=== PATIENT | female | born 1990 | race Caucasian/White ===

== ENCOUNTER 2017-04-22 20:39 | Emergency (ER) | payer OTHER ==
[~2017-04-22] VITALS: Ht 170.2 cm; Wt 132.7 kg
[2017-04-22 20:40] VITALS: BP 114/66
[2017-04-22] MEDS ORDERED: ABIL1TAB11 PO (21:11)
[2017-04-22] MEDS ORDERED: ZOLO100T PO (21:11)
== END 2017-04-22 22:59 | disposition left against medical advice (07) ==
LOC: M ED 20:39
DX: R10.9 Unspecified abdominal pain (principal)

== ENCOUNTER 2017-04-23 18:41 | Emergency (ER) | payer OTHER ==
[~2017-04-23] VITALS: Ht 170.2 cm; Wt 132.7 kg
[2017-04-23 18:41] VITALS: BP 127/66
[~2017-04-23 18:41] MED LIST: ABIL1TAB11 PO; ZOLO100T PO
[2017-04-23 20:07] LABS: BASO # 0.1 10^3/uL (0.0-0.2); BASO % 0.6 % (0.0-1.0); CONTROL LINE UCG INT CTR LINE PRESENT; EOS # 0.5 10^3/uL (0.0-0.50); EOS % 4.2 % (0.0-3.0); IMMATURE GRANULOCYTE % 0.5 % (0-0); LYMPH # 2.8 10^3/uL (1.5-6.5); MEAN CORPUSCULAR HEMOGLOBIN 24.4 pg (27.0-33.0); MEAN CORPUSCULAR HGB CONC 30.8 g/dl (32.0-36.5); MEAN CORPUSCULAR VOLUME 79.4 fl (80.0-96.0); MONO # 0.5 10^3/uL (0.0-0.8); NEUTROPHILS % 63.7 % (36.0-66.0); PLATELET COUNT, AUTOMATED 345 10^3/uL (150-450); RED CELL DISTRIBUTION WIDTH 16.1 % (11.5-14.5); WHITE BLOOD COUNT 10.9 10^3/uL (4.0-10.0)
[2017-04-23 20:09] LABS: ADD MORPHOLOGY? NO
[2017-04-23] MEDS ORDERED: MORPHINE 2 MG/ML 1ML SYRINGE IV ONE ×2 (20:15→21:45)
[2017-04-23] MEDS ORDERED: diphenhydrAMINE INJ 50MG/ML VIAL (J1200) IM ONE (21:45)
[2017-04-23] MEDS ORDERED: diphenhydrAMINE INJ 50MG/ML VIAL (J1200) IV STA (21:45)
[2017-04-23] MEDS ORDERED: PHENAZOPYRIDINE 100 MG TAB PO ONE (22:45)
--- NOTE | 2017-04-23 23:30 | REPUSA ---
Clinical history: Pain. Findings: Real-time transabdominal and transvaginal ultrasound images of the pelvis were obtained. Mu ltiple simple cysts are seen within the cervix. A retroflexed uterus is noted, measuring 7.3 x 4.3 x 5.5 cm. The uterus demonstrates normal echotexture and echogenicity. The endometrial stripe measures 10 mm and is within normal limits. The right ovary measures 3.6 x 2.5 x 4.2 cm. The left ovary measur es 3.3 x 2.5 x 1.9 cm. No adnexal masses are seen. Color Doppler flow is seen within both ovaries. Th ere is no evidence of free fluid. Impression: Unremarkable ultrasound examination of the uterus and ovaries. Nabothian cysts.
== END 2017-04-23 23:27 | disposition left against medical advice (07) ==
LOC: M ED 18:41
DX: N93.9 Abnormal uterine and vaginal bleeding, unspecified (principal)
CPT/HCPCS: 76856; 81001; 84703; 85025; 86850; 86900; 86901; 87210; 87491; 87591; 96374; 96375; 96376; 99282; J1200

== ENCOUNTER 2019-09-25 14:28 | Emergency (ER) | payer OTHER, SELFPAY ==
[~2019-09-25] VITALS: Ht 172.7 cm; Wt 145.9 kg
[2019-09-25 14:29] VITALS: BP 122/65
[2019-09-25] MEDS ORDERED: SERT-138 (14:34)
[2019-09-25 16:39] LABS: BASO # 0.1 10^3/uL (0.0-0.2); BASO % 0.4 % (0.0-1.0); EOS # 0.3 10^3/uL (0.0-0.5); EOS % 1.9 % (0.0-3.0); HEMATOCRIT 38.8 % (36.0-47.0); HEMOGLOBIN 12.4 g/dl (12.0-15.5); LYMPH # 2.1 10^3/uL (1.5-5.0); LYMPH % 15.6 % (24.0-44.0); MEAN CORPUSCULAR HEMOGLOBIN 27.5 pg (27.0-33.0); MONO # 0.7 10^3/uL (0.0-0.8); MONO % 5.2 % (0.0-5.0); NEUTROPHILS # 10.2 10^3/uL (1.5-8.5); PLATELET COUNT, AUTOMATED 379 10^3/uL (150-450); RED BLOOD COUNT 4.51 10^6/uL (4.00-5.40); WHITE BLOOD COUNT 13.4 10^3/uL (4.0-10.0)
[2019-09-25 17:05] LABS: ALBUMIN 3.4 GM/DL (3.2-5.2); ALT/SGPT 22 U/L (12-78); BILIRUBIN,DIRECT < 0.1 MG/DL (0.0-0.2); BILIRUBIN,TOTAL 0.2 MG/DL (0.2-1.0); BLOOD UREA NITROGEN 11 MG/DL (7-18); CALCIUM LEVEL 8.6 MG/DL (8.5-10.1); CARBON DIOXIDE LEVEL 26 MEQ/L (21-32); CHLORIDE LEVEL 107 MEQ/L (98-107); CREATININE FOR GFR 0.64 MG/DL (0.55-1.30); GLOMERULAR FILTRATION RATE > 60.0 (>60); GLUCOSE, FASTING 105 MG/DL (70-100); LIPASE 129 U/L (73-393); POTASSIUM SERUM 3.9 MEQ/L (3.5-5.1); SODIUM LEVEL 139 MEQ/L (136-145); TOTAL PROTEIN 7.5 GM/DL (6.4-8.2)
[2019-09-25] MEDS ORDERED: diphenhydrAMINE INJ 50MG/ML VIAL (J1200) IV STA (17:29)
[2019-09-25] MEDS ORDERED: ONDANSETRON 4MG/2ML VIAL (J2405) IV ONE (17:30)
[2019-09-25] MEDS ORDERED: ACETAMINOPHEN 500 MG TAB PO ONE (17:30)
[2019-09-26 10:48] LABS: CHLAMYDIA DNA AMPLIFICATION NEGATIVE (NEGATIVE); GC DNA AMPLIFICATION NEGATIVE (NEGATIVE)
== END 2019-09-25 18:04 | disposition left against medical advice (07) ==
LOC: M ED 14:28
DX: R10.30 Lower abdominal pain, unspecified (principal); R11.10 Vomiting, unspecified; Z79.899 Other long term (current) drug therapy; Z88.0 Allergy status to penicillin; Z88.8 Allergy status to other drugs, medicaments and biological substances; Z91.040 Latex allergy status; Z91.041 Radiographic dye allergy status; Z91.048 Other nonmedicinal substance allergy status

== ENCOUNTER 2019-09-29 12:27 | Emergency (ER) | payer OTHER, SELFPAY ==
[~2019-09-29] VITALS: Ht 172.7 cm; Wt 148.2 kg
[~2019-09-29 12:27] MED LIST changes: +SERT-138
[2019-09-29 13:31] LABS: BASO # 0.1 10^3/uL (0.0-0.2); BASO % 0.6 % (0.0-1.0); EOS # 0.4 10^3/uL (0.0-0.5); EOS % 3.5 % (0.0-3.0); HEMATOCRIT 37.8 % (36.0-47.0); HEMOGLOBIN 11.9 g/dl (12.0-15.5); LYMPH # 1.9 10^3/uL (1.5-5.0); LYMPH % 17.5 % (24.0-44.0); MEAN CORPUSCULAR HGB CONC 31.5 g/dl (32.0-36.5); MEAN CORPUSCULAR VOLUME 85.7 fl (80.0-96.0); MONO # 0.6 10^3/uL (0.0-0.8); MONO % 5.1 % (0.0-5.0); NEUTROPHILS # 7.8 10^3/uL (1.5-8.5); NEUTROPHILS % 71.8 % (36.0-66.0); PLATELET COUNT, AUTOMATED 346 10^3/uL (150-450); RED BLOOD COUNT 4.41 10^6/uL (4.00-5.40); WHITE BLOOD COUNT 10.9 10^3/uL (4.0-10.0)
[2019-09-29 13:51] LABS: BLOOD UREA NITROGEN 6 MG/DL (7-18); CALCIUM LEVEL 7.8 MG/DL (8.5-10.1); CARBON DIOXIDE LEVEL 26 MEQ/L (21-32); CHLORIDE LEVEL 109 MEQ/L (98-107); CREATININE FOR GFR 0.56 MG/DL (0.55-1.30); GLOMERULAR FILTRATION RATE > 60.0 (>60); GLUCOSE, FASTING 79 MG/DL (70-100); HCG, SERUM QUALITATIVE NEGATIVE (NEGATIVE); SODIUM LEVEL 141 MEQ/L (136-145)
[2019-09-29] MEDS: PROMETHAZINE 25 MG TAB PO ONE ×2 (15:36→16:03)
[2019-09-29] MEDS: ACETAMINOPHEN 500 MG TAB PO ONE ×2 (15:36→16:04)
[2019-09-29 15:47] VITALS: BP 122/88
--- NOTE | 2019-09-30 06:40 | REP ---
Pelvic sonography: History: Right lower quadrant pain. History of ovarian cysts. Findings: Transabdominal and transvaginal scanning are performed. Uterine dimensions are normal measured at 7.4 x 4.3 x 5.8 cm . Endometrial echo is 0.7 cm thick. Uterus is somewhat retroverted. No focal uterine mass is seen. Uterine texture is heterogeneous, however, and there is one focal parenchymal calcification. Normal ovaries are seen bilaterally. Right ovary measures 3.5 x 2.1 x 3.1 cm. Left ovary measures 1.8 x 2.0 x 1.3 cm. Visualized bladder urbina are smooth. Impression: Retroverted uterus. Normal ovaries. No significant morphologic abnormality. Electronically Signed by Ruel Villalobos MD 09/30/2019 07:47 A
== END 2019-09-29 15:55 | disposition left against medical advice (07) ==
LOC: M ED 12:27
DX: N93.8 Other specified abnormal uterine and vaginal bleeding (principal); N85.4 Malposition of uterus; Z53.20 Procedure and treatment not carried out because of patient's decision for unspecified reasons; Z87.42 Personal history of other diseases of the female genital tract; F17.210 Nicotine dependence, cigarettes, uncomplicated; Z88.0 Allergy status to penicillin; Z88.1 Allergy status to other antibiotic agents; Z88.8 Allergy status to other drugs, medicaments and biological substances; Z91.040 Latex allergy status; Z91.041 Radiographic dye allergy status

== ENCOUNTER 2019-10-04 00:17 | Emergency (ER) | payer OTHER ==
[~2019-10-04] VITALS: Ht 172.7 cm; Wt 144.7 kg
[2019-10-04] MEDS ORDERED: ACETAMINOPHEN 500 MG TAB PO ONE (03:45)
[2019-10-04 03:55] VITALS: BP 107/49
[2019-10-04 04:30] LABS: AMPHETAMINES LEVEL URINE NEGATIVE (NEGATIVE); BARBITURATES URINE NEGATIVE (NEGATIVE); BENZODIAZEPINES URINE NEGATIVE (NEGATIVE); CANNABINOIDS URINE POSITIVE (NEGATIVE); COCAINE METABOLITE URINE NEGATIVE (NEGATIVE); METHADONE URINE NEGATIVE (NEGATIVE); OPIATES URINE NEGATIVE (NEGATIVE); PHENCYCLIDINE URINE NEGATIVE (NEGATIVE)
== END 2019-10-04 04:56 | disposition home or self-care (01) ==
LOC: M ED 00:17
DX: M54.5 Low back pain (principal); Z76.5 Malingerer [conscious simulation]; F41.9 Anxiety disorder, unspecified; F33.9 Major depressive disorder, recurrent, unspecified; Z88.0 Allergy status to penicillin; Z88.8 Allergy status to other drugs, medicaments and biological substances; Z91.041 Radiographic dye allergy status; Z91.040 Latex allergy status

== ENCOUNTER → 2019-10-15 | Outpatient (CLI) | payer OTHER ==
[2019-10-15 16:40] LABS: INFLUENZA A AMPLIFICATION NEGATIVE (NEGATIVE); INFLUENZA B AMPLIFICATION NEGATIVE (NEGATIVE)
== END ==
LOC: M LABSMTC 10:08
PROVIDERS: ATTEND Family Medicine
DX: Z11.59 Encounter for screening for other viral diseases (principal); Z20.828 Contact with and (suspected) exposure to other viral communicable diseases
CPT/HCPCS: 87502; U0002

== ENCOUNTER 2019-11-15 21:34 | Emergency (ER) | payer OTHER ==
[~2019-11-15] VITALS: Ht 172.7 cm; Wt 106.8 kg
[~2019-11-15 21:34] MED LIST changes: +SERT-138 PO
[2019-11-15 21:41] VITALS: BP 125/66
[2019-11-15] MEDS ORDERED: PREN200C PO (21:42)
[2019-11-15] MEDS ORDERED: NS 1,000 ML IV ONE (22:00)
[2019-11-15] MEDS ORDERED: PROMETHAZINE INJ 25 MG/ML VIAL (J2550) IV ONE (22:00)
[2019-11-15 22:23] LABS: BASO # 0.1 10^3/uL (0.0-0.2); BASO % 0.7 % (0.0-1.0); EOS # 0.8 10^3/uL (0.0-0.5); EOS % 5.2 % (0.0-3.0); HEMATOCRIT 36.6 % (36.0-47.0); HEMOGLOBIN 11.8 g/dl (12.0-15.5); LYMPH # 3.1 10^3/uL (1.5-5.0); LYMPH % 20.8 % (24.0-44.0); MEAN CORPUSCULAR HEMOGLOBIN 26.9 pg (27.0-33.0); MEAN CORPUSCULAR HGB CONC 32.2 g/dl (32.0-36.5); MEAN CORPUSCULAR VOLUME 83.4 fl (80.0-96.0); MONO # 0.6 10^3/uL (0.0-0.8); MONO % 3.9 % (0.0-5.0); NEUTROPHILS # 10.1 10^3/uL (1.5-8.5); NEUTROPHILS % 68.5 % (36.0-66.0); PLATELET COUNT, AUTOMATED 323 10^3/uL (150-450); RED BLOOD COUNT 4.39 10^6/uL (4.00-5.40); WHITE BLOOD COUNT 14.7 10^3/uL (4.0-10.0)
[2019-11-15 22:58] LABS: ALT/SGPT 21 U/L (12-78); BILIRUBIN,DIRECT < 0.1 MG/DL (0.0-0.2); BILIRUBIN,TOTAL 0.1 MG/DL (0.2-1.0); HCG, SERUM QUANTITATIVE 15258 MIU/ML; LIPASE 108 U/L (73-393); TOTAL PROTEIN 7.1 GM/DL (6.4-8.2)
== END 2019-11-15 22:46 | disposition left against medical advice (07) ==
LOC: M ED 21:34
DX: R10.9 Unspecified abdominal pain (principal); Z76.5 Malingerer [conscious simulation]; F17.200 Nicotine dependence, unspecified, uncomplicated; Z98.890 Other specified postprocedural states; Z90.49 Acquired absence of other specified parts of digestive tract; Z88.0 Allergy status to penicillin; Z91.040 Latex allergy status; Z91.041 Radiographic dye allergy status; Z91.09 Other allergy status, other than to drugs and biological substances

== ENCOUNTER 2020-01-10 00:47 | Emergency (ER) | payer OTHER ==
[~2020-01-10] VITALS: Ht 172.7 cm; Wt 154.6 kg
[2020-01-10 00:47] VITALS: BP 151/76
[~2020-01-10 00:47] MED LIST changes: +PREN200C PO
--- NOTE | 2020-01-10 02:45 | ED PDOC ---
Post-Departure Follow-Up PATIENT LEFT WITHOUT BEING SEEN AND WAS NOT SEEN BY A PROVIDER CYNTHIA MENDES, Jan 10, 2020 02:45
== END 2020-01-10 02:52 | disposition left against medical advice (07) ==
LOC: M ED 00:47
DX: Z53.21 Procedure and treatment not carried out due to patient leaving prior to being seen by health care provider (principal)

== ENCOUNTER 2020-02-12 12:21 | Emergency (ER) | payer OTHER ==
[~2020-02-12] VITALS: Ht 172.7 cm; Wt 152.3 kg
[2020-02-12] MEDS ORDERED: MORPHINE 2 MG/ML 1ML VIAL (J2270) IV ONE ×2 (13:30→15:30)
[2020-02-12 13:51] LABS: BASO % 0.4 % (0.0-1.0); EOS # 0.2 10^3/uL (0.0-0.5); EOS % 1.7 % (0.0-3.0); HEMATOCRIT 31.4 % (36.0-47.0); HEMOGLOBIN 10.1 g/dl (12.0-15.5); LYMPH # 1.7 10^3/uL (1.5-5.0); LYMPH % 15.6 % (24.0-44.0); MEAN CORPUSCULAR HEMOGLOBIN 27.4 pg (27.0-33.0); MEAN CORPUSCULAR HGB CONC 32.2 g/dl (32.0-36.5); MEAN CORPUSCULAR VOLUME 85.1 fl (80.0-96.0); MONO # 0.6 10^3/uL (0.0-0.8); MONO % 5.2 % (0.0-5.0); NEUTROPHILS # 8.3 10^3/uL (1.5-8.5); NEUTROPHILS % 76.4 % (36.0-66.0); PLATELET COUNT, AUTOMATED 302 10^3/uL (150-450); RED BLOOD COUNT 3.69 10^6/uL (4.00-5.40); WHITE BLOOD COUNT 10.9 10^3/uL (4.0-10.0)
[2020-02-12] MEDS ORDERED: PROMETHAZINE INJ 25 MG/ML VIAL (J2550) IV ONE (14:00)
--- NOTE | 2020-02-12 14:25 | REP ---
Clinical: Trauma. Mid . Technique: Limited transabdominal obstetrical ultrasound with color Doppler evaluation. Findings: Ultrasound examination demonstrates single live intrauterine in cephalic presentation. heart rate equals 147 beats per minute. Placenta is identified anteriorly and grade 0 with possible posterior succenturiate lobe. Impression: Live intrauterine in cephalic presentation. Electronically Signed by Sergio Caceres MD 02/12/2020 02:17 P
[2020-02-12 14:34] LABS: BLOOD UREA NITROGEN 8 MG/DL (7-18); CARBON DIOXIDE LEVEL 24 MEQ/L (21-32); CHLORIDE LEVEL 106 MEQ/L (98-107); CK-MB VALUE MASS < 1.0 NG/ML (<3.6); CPK CREATINE PHOSPHOKINASE 22 U/L (26-192); GLOMERULAR FILTRATION RATE > 60.0 (>60); GLUCOSE, FASTING 86 MG/DL (70-100); HCG, SERUM QUANTITATIVE 5803 MIU/ML; MAGNESIUM LEVEL 1.7 MG/DL (1.8-2.4); MB/CK RELATIVE INDEX 4.55 (< OR =4); POTASSIUM SERUM 4.4 MEQ/L (3.5-5.1); SODIUM LEVEL 135 MEQ/L (136-145); TROPONIN I < 0.02 NG/ML (< 0.10)
--- NOTE | 2020-02-12 15:30 | REP ---
Head CT without contrast: History: Loss of consciousness after a fall. Comparison study: Comparison head CT study September 14, 2019. CT findings: Bone window settings demonstrate an intact bony calvarium. There is no evidence of skull fracture or incidental bony calvarial lesion. The visualized paranasal sinuses appear clear. No intraorbital abnormality is seen. On soft tissue window setting images; the lateral, third, and fourth ventricles are normal in size and position. Hill-white differentiation pattern is normal above and below the tentorium. There are is no evidence of intracranial hemorrhage. No mass, edema, infarction, or midline shift is seen. No extra-axial fluid collection is appreciated. Impression: Negative noncontrast head CT. Electronically Signed by Ruel Villalobos MD 02/12/2020 03:22 P
--- NOTE | 2020-02-12 15:33 | REP ---
CT study of the cervical spine without contrast: History: Loss of consciousness after a fall. Comparison CT study September 14, 2019. Technique: Helical scanning is acquired and overlapping 2 mm high resolution axial images were generated and reviewed at bone and soft tissue window settings. Coronal and sagittal multiplanar re-formations images are generated. CT findings: There is no evidence of cervical spine element fracture. No skull base fracture is seen. Cervical vertebral body heights are preserved. Alignment is normal. Facet joints are normally aligned bilaterally at each cervical level on multiplanar re-formations images. There is no evidence of intraspinal or paraspinal hematoma. No extra vertebral abnormality is seen. Impression: Negative CT study of the cervical spine without contrast. No fracture seen. Electronically Signed by Ruel Villalobos MD 02/12/2020 03:26 P
[2020-02-12] MEDS ORDERED: MORPHINE 4 MG/ML 1ML VIAL/SYRINGE (J2270) IV ONE (16:45)
--- NOTE | 2020-02-12 17:19 | REP ---
Clinical: thoracic pain with recent trauma/fall . Technique: AP, lateral views of the thoracic spine. Findings: Alignment and kyphosis is maintained. Vertebral bodies intact. No acute fracture / compression injury or subluxation. No degenerative changes. Impression: Normal thoracic spine series. Electronically Signed by Sergio Caceres MD 02/12/2020 05:12 P
--- NOTE | 2020-02-12 17:19 | REP ---
Clinical: Severe lower back pain. Technique: AP and lateral views of the lumbosacral spine. Findings: Alignment and lordosis maintained. Vertebral bodies are intact. No acute fracture / compression injury or subluxation. No significant degenerative changes noted. Impression: Normal lumbosacral spine radiographs. Electronically Signed by Sergio Caceres MD 02/12/2020 05:11 P
--- NOTE | 2020-02-12 17:53 | ECGEPIP ---
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
[2020-02-12] MEDS ORDERED: PRENCHW PO (18:02)
[2020-02-12] MEDS ORDERED: MORPHINE 2 MG/ML 1ML VIAL (J2270) IV PRN (19:45)
[2020-02-12 20:15] VITALS: BP 124/59
[2020-02-12] MEDS ORDERED: PRENATAL VITAMINS CHEWABLE TABLET PO SCH (21:00)
[2020-02-13] MEDS ORDERED: SERTRALINE 100 MG TAB PO SCH (09:00)
== END 2020-02-12 20:35 | disposition left against medical advice (07) ==
LOC: M ED 12:21 → M ED INP 12:22 → UNDOADMOB 12:22
DX: O26.91 Pregnancy related conditions, unspecified, first trimester (principal); R55 Syncope and collapse; O9A.211 Injury, poisoning and certain other consequences of external causes complicating pregnancy, first trimester; O26.891 Other specified pregnancy related conditions, first trimester; M54.5 Low back pain; W10.8XXA Fall (on) (from) other stairs and steps, initial encounter; Y92.9 Unspecified place or not applicable; Z3A.12 12 weeks gestation of pregnancy; Z53.9 Procedure and treatment not carried out, unspecified reason; Z88.0 Allergy status to penicillin; Z88.1 Allergy status to other antibiotic agents; Z88.8 Allergy status to other drugs, medicaments and biological substances; Z91.041 Radiographic dye allergy status; Z91.040 Latex allergy status; Z91.09 Other allergy status, other than to drugs and biological substances; Z79.899 Other long term (current) drug therapy
CPT/HCPCS: 70450; 72072; 72100; 72125; 76815; 80048; 81001; 82550; 82553; 83735; 84484; 84702; 85025; 85460; 86850; 86900; 86901; 93005; 93041; 94760; 96374; 96376; 99285; J2270

== ENCOUNTER 2020-05-29 09:15 | Outpatient (CLI) | payer OTHER ==
[~2020-05-29] VITALS: Ht 172.7 cm; Wt 157.1 kg
[~2020-05-29 09:15] MED LIST changes: +PRENCHW PO
[2020-05-29] MEDS ORDERED: SERT-138 PO (09:25)
[2020-05-29 09:36] VITALS: BP 116/58
[2020-05-29] MEDS ORDERED: LACTATED RINGER'S 1000 ML IV ONE (10:00)
[2020-05-29] MEDS ORDERED: LR 1,000 ML IV SCH (10:00)
[2020-05-29 10:57] VITALS: BP 115/54
[2020-05-29 11:16] LABS: BASO # 0.1 10^3/uL (0.0-0.2); BASO % 0.5 % (0.0-1.0); EOS # 0.1 10^3/uL (0.0-0.5); HEMATOCRIT 27.2 % (36.0-47.0); HEMOGLOBIN 8.2 g/dl (12.0-15.5); LYMPH # 1.9 10^3/uL (1.5-5.0); LYMPH % 16.1 % (24.0-44.0); MEAN CORPUSCULAR HGB CONC 30.1 g/dl (32.0-36.5); MEAN CORPUSCULAR VOLUME 79.8 fl (80.0-96.0); MONO # 0.6 10^3/uL (0.0-0.8); MONO % 5.1 % (0.0-5.0); NEUTROPHILS # 8.8 10^3/uL (1.5-8.5); NEUTROPHILS % 76.1 % (36.0-66.0); PLATELET COUNT, AUTOMATED 295 10^3/uL (150-450); RED BLOOD COUNT 3.41 10^6/uL (4.00-5.40); WHITE BLOOD COUNT 11.5 10^3/uL (4.0-10.0)
== END 2020-05-29 12:20 | disposition home or self-care (01) ==
LOC: M LDO 09:15
PROVIDERS: ATTEND Obstetrics & Gynecology
DX: O46.90 Antepartum hemorrhage, unspecified, unspecified trimester (principal); Z3A.00 Weeks of gestation of pregnancy not specified
CPT/HCPCS: 36415; 59025; 81001; 85025; G0378; G0463

== ENCOUNTER 2020-06-27 20:33 | Emergency (ER) | payer OTHER ==
[~2020-06-27] VITALS: Ht 172.7 cm; Wt 156.8 kg
[2020-06-27] MEDS ORDERED: PERC5TAB12 PO (20:45)
[2020-06-27] MEDS ORDERED: PERCOCET 5MG/325MG TAB PO ONE (22:15)
[2020-06-27 22:55] VITALS: BP 128/66
== END 2020-06-27 22:58 | disposition home or self-care (01) ==
LOC: M ED 20:33
DX: R10.9 Unspecified abdominal pain (principal); I10 Essential (primary) hypertension; Z91.041 Radiographic dye allergy status; Z91.040 Latex allergy status; Z79.899 Other long term (current) drug therapy; Z88.0 Allergy status to penicillin; Z88.6 Allergy status to analgesic agent; Z88.8 Allergy status to other drugs, medicaments and biological substances